=== PATIENT | female | born 2000 ===

== ENCOUNTER 2019-10-26 19:41 | Inpatient (IN) | payer SELFPAY ==
[2019-10-26] MEDS: haloperidol inj 5 mg/mL INJ 1 mL IM (20:04)
[2019-10-26] MEDS: LORazepam 2 mg/mL INJ 1 mL 4 MG IM (20:05)
[2019-10-26 20:18] LABS: Basophils # 0.1 10^3/uL (0.0-0.1); Basophils % 0.5 %; Eosinophils # 0.1 10^3/uL (0.0-0.8); Eosinophils % 0.9 %; Hematocrit 43.2 % (37.0-47.0); Hemoglobin 14.2 g/dL (11.5-15.3); Lymphocytes # 1.7 10^3/uL (0.8-4.8); Lymphocytes % 17.1 %; Mean Corpuscular HGB Conc 32.9 g/dL (30.0-36.0); Mean Corpuscular Hemoglobin 31.8 pg (28.0-34.0); Mean Corpuscular Volume 96.6 fL (81-99); Mean Platelet Volume 9.2 fL (7.4-10.4); Monocytes # 0.8 10^3/uL (0.2-0.9); Monocytes % 8.3 %; Neutrophils # 7.22 10^3/uL (1.8-7.7); Neutrophils % 72.8 %; Nucleated Red Blood Cells % 0 %; Platelet Count 300 10^3/cmm (130-400); Red Blood Count 4.47 10^6/uL (4.1-5.3); Red Cell Distribution Width 12.8 % (12.1-15.1); White Blood Count 9.9 10^3/uL (4.0-10.0)
[2019-10-26 20:20] VITALS: BP 172/98; PULSE 108; RESP 18; TEMP 36.8; O2SAT 99; BMI 17.6
--- NOTE | 2019-10-26 20:31 | ED_ITS ---
HPI - Psych General: Chief Complaint: Psychiatric Symptoms Stated Complaint: psych Time Seen by Provider: 10/26/19 19:42 Source: EMS Mode of arrival: EMS Limitations: altered mental status History of Present Illness: HPI Narrative: 19-year-old female who presents here with acute psychosis and agitation. Pt brought by ems after being found on the road. she has a known hx of drug use. Patient has track damian and is very agitated appears to be under the influence. Patient will follow commands and answer some questions. Review of Systems General: Reports: ROS unobtainable due to mental status Physical Exam Const: COMMON NORMALS: negative for patient oriented x3 EXAM LIMITATIONS: altered mental status GENERAL APPEARANCE: in distress, combative and disheveled HENMT: COMMON NORMALS: normocephalic and atraumatic HEAD & SCALP: normocephalic and atraumatic Eye: COMMON NORMALS: Equal, round and reactive pupils present and EOMs intact bilaterally PUPIL: Yes Equal, round and reactive pupils present Neck/C-Spine: COMMON NORMALS: full ROM and supple Chest: COMMONS NORMALS: normal inspection of the chest and normal palpation of entire chest wall Resp: COMMON NORMALS: normal respiratory effort, No retractions, No use of accessory muscles and clear to auscultation bilaterally AUSCULTATION: clear to auscultation bilaterally Cardio: COMMON NORMALS: regular rate, regular rhythm and No murmurs present (Cardio) RATE: regular rate RHYTHM: regular rhythm GI: COMMON NORMALS: Normal to inspection, nondistended, normoactive bowel sounds present, Soft to palpation, non-tender and no masses PALPATION: Yes Soft to palpation Extremity: COMMON NORMALS: normal to inspection and full ROM Neuro: COMMON NORMALS: moves all extremities and no focal motor deficits; negative for patient oriented x3 Psych: COMMON NORMALS: Normal thought process present APPEARANCE: Yes disheveled ATTITUDE: Yes paranoid, Yes agitated and Yes aggressive ACTIVITY/MOTOR BEHAVIOR: Yes psychomotor slowing MOOD & AFFECT: Yes hostile affect THOUGHT PROCESS: Normal thought process present Skin: COMMON NORMALS: no rashes or lesions noted and no wounds GENERAL SKIN EXAM: no rashes or lesions noted MDM - Psych MDM Narrative: Medical decision making narrative: Patient presents with acute psychosis likely from drug abuse. Patient had to be sedated here she was quite combative and agitated due to likely methamphetamine abuse. Spoke to Dr. Trujillo and will admit to the Neuropsych Unit for acute psychosis. Lab Data: Labs: Lab Results 10/26/19 10/26/19 10/26/19 Range/Units 20:10 20:10 20:13 WBC 9.9 (4.0-10.0) 10^3/ uL RBC 4.47 (4.1-5.3) 10^6/u L Hgb 14.2 (11.5-15.3) g/dL Hct 43.2 (37.0-47.0) % MCV 96.6 (81-99) fL MCH 31.8 (28.0-34.0) pg MCHC 32.9 (30.0-36.0) g/dL RDW 12.8 (12.1-15.1) % Plt Count 300 (130-400) 10^3/c mm MPV 9.2 (7.4-10.4) fL Neut % (Auto) 72.8 % Lymph % (Auto) 17.1 % [place] % (Auto) 8.3 % Eos % (Auto) 0.9 % Baso % (Auto) 0.5 % Neut # (Auto) 7.22 (1.8-7.7) 10^3/u L Lymph # (Auto) 1.7 (0.8-4.8) 10^3/u L [place] # (Auto) 0.8 (0.2-0.9) 10^3/u L Eos # (Auto) 0.1 (0.0-0.8) 10^3/u L Baso # (Auto) 0.1 (0.0-0.1) 10^3/u L Nucleated RBC % (a uto) 0 % Nucleated RBCs # 0.0 /100WBC Sodium (136-145) mmol/L Potassium (3.5-5.1) mmol/L Chloride (98-107) mmol/L Carbon Dioxide (22-29) mmol/L Anion Gap (5-19) BUN (6-20) mg/dL Creatinine (0.5-0.9) mg/dL GFR Calculation (90-130) mL/min Glucose (65-115) mg/dL Calculated Osmolal ity (285-295) mOsm/k g Calcium (8.5-10.5) mg/dL Total Bilirubin (0.15-1.2) mg/dL AST (0-32) U/L ALT (0-33) U/L Alkaline Phosphata se (35-105) IU/L Total Protein (6.6-8.7) g/dL Albumin (3.5-5.2) g/dL Globulin (1.3-4.6) g/dL HCG, Qual Negative (Negative) Salicylates (3-10) mg/dL Urine Opiates Scre en Negative (Negative) ng/mL Acetaminophen (10-30) ug/mL Ur Barbiturates Sc reen Negative (Negative) ng/mL Ur Phencyclidine S crn Positive H (Negative) ng/mL Ur Amphetamines Sc reen Positive H (Negative) ng/mL U Benzodiazepines Scrn Positive H (Negative) ng/mL Urine Cocaine Scre en Negative (Negative) ng/mL U Marijuana (THC) Screen Positive H (Negative) ng/mL Ethyl Alcohol (0-10) mg/dL 10/26/19 Range/Units 20:13 WBC (4.0-10.0) 10^3/ uL RBC (4.1-5.3) 10^6/u L Hgb (11.5-15.3) g/dL Hct (37.0-47.0) % MCV (81-99) fL MCH (28.0-34.0) pg MCHC (30.0-36.0) g/dL RDW (12.1-15.1) % Plt Count (130-400) 10^3/c mm MPV (7.4-10.4) fL Neut % (Auto) % Lymph % (Auto) % [place] % (Auto) % Eos % (Auto) % Baso % (Auto) % Neut # (Auto) (1.8-7.7) 10^3/u L Lymph # (Auto) (0.8-4.8) 10^3/u L [place] # (Auto) (0.2-0.9) 10^3/u L Eos # (Auto) (0.0-0.8) 10^3/u L Baso # (Auto) (0.0-0.1) 10^3/u L Nucleated RBC % (a uto) % Nucleated RBCs # /100WBC Sodium 135 L (136-145) mmol/L Potassium 4.4 (3.5-5.1) mmol/L Chloride 102 (98-107) mmol/L Carbon Dioxide 22 (22-29) mmol/L Anion Gap 15.4 (5-19) BUN 16 (6-20) mg/dL Creatinine 0.7 (0.5-0.9) mg/dL GFR Calculation 105.6 (90-130) mL/min Glucose 100 (65-115) mg/dL Calculated Osmolal ity 276 L (285-295) mOsm/k g Calcium 8.9 (8.5-10.5) mg/dL Total Bilirubin 0.4 (0.15-1.2) mg/dL AST 13 (0-32) U/L ALT 13 (0-33) U/L Alkaline Phosphata se 83 (35-105) IU/L Total Protein 7.2 (6.6-8.7) g/dL Albumin 4.7 (3.5-5.2) g/dL Globulin 2.5 (1.3-4.6) g/dL HCG, Qual (Negative) Salicylates < 0.3 L (3-10) mg/dL Urine Opiates Scre en (Negative) ng/mL Acetaminophen < 5.0 L (10-30) ug/mL Ur Barbiturates Sc reen (Negative) ng/mL Ur Phencyclidine S crn (Negative) ng/mL Ur Amphetamines Sc reen (Negative) ng/mL U Benzodiazepines Scrn (Negative) ng/mL Urine Cocaine Scre en (Negative) ng/mL U Marijuana (THC) Screen (Negative) ng/mL Ethyl Alcohol < 10 (0-10) mg/dL Discharge Plan Discharge Patient Disposition: Admitted As Inpatient Clinical Impression: Acute psychosis, Drug-induced psychotic disorder Condition: Stable Coding Level of Care Code ED Public Information Relations Manager for rFan Fwd Exam Comprehensive
[2019-10-26 20:44] LABS: Alanine Aminotransferase 13 U/L (0-33); Albumin Level 4.7 g/dL (3.5-5.2); Alkaline Phosphatase 83 IU/L (35-105); Anion Gap 15.4 (5-19); Aspartate Amino Transferase 13 U/L (0-32); Blood Urea Nitrogen 16 mg/dL (6-20); Calcium 8.9 mg/dL (8.5-10.5); Carbon Dioxide 22 mmol/L (22-29); Chloride 102 mmol/L (98-107); Globulin 2.5 g/dL (1.3-4.6); Glomerular Filtration Rate 105.6 mL/min (90-130); Glucose 100 mg/dL (65-115); Osmolality Calculated 276 mOsm/kg (285-295); Potassium 4.4 mmol/L (3.5-5.1); Sodium 135 mmol/L (136-145); Total Bilirubin 0.4 mg/dL (0.15-1.2); Total Protein 7.2 g/dL (6.6-8.7)
[2019-10-26 20:45] LABS: Acetaminophen < 5.0 ug/mL (10-30); Alcohol Level < 10 mg/dL (0-10); Salicylate < 0.3 mg/dL (3-10)
[2019-10-26 21:10] LABS: HCG Qualitative Urine. Negative (Negative)
[2019-10-26 21:16] LABS: Amphetamines Screen Urine Positive (Negative); Barbiturates Screen Urine Negative (Negative); Benzodiazepines Screen Urine Positive (Negative); Cocaine Screen Urine Negative (Negative); Opiate Screen Urine Negative (Negative); PCP Screen Urine Positive (Negative); THC Screen Urine Positive (Negative)
[2019-10-26 22:14] VITALS: BP 168/89; PULSE 78; RESP 18; O2SAT 94
--- NOTE | 2019-10-26 22:57 | PC.NURSE ---
Pt arrived to unit at 2251 via gurney from ER, sedated. pt assisted to bed per staff and assisted into unit scrubs. pt is unable to answer admission questions or sign paperwork due to sedation. vital signs obtained.
[2019-10-26 22:59] VITALS: BP 130/87; PULSE 80; RESP 15; TEMP 36.5; O2SAT 98
[2019-10-27 06:00] VITALS: BP 106/64; PULSE 91; RESP 13; TEMP 36.6; O2SAT 96
--- NOTE | 2019-10-27 06:16 | PC.NURSE ---
Needle track damian on both arms. Insect bites all over her body. Left great toe injury with area of discoloration.
[2019-10-27] MEDS: nicotine 2 mg Gum BUCCAL ×3 (10:17→17:12)
[2019-10-27 14:00] VITALS: BP 143/86; PULSE 110; RESP 18; TEMP 37.3; O2SAT 100
--- NOTE | 2019-10-27 16:27 | P.HP_ITS ---
Providers/Chief Complaint Admitting Physician: Dedrick Trujillo MD Chief Complaint: psych HPI NPU History of Present Illness SHIRLENE Martin is a 19 year old female who presents today, having presented to the emergency room with acute psychosis and agitation. She was brought in by EMS, after being found on the road, with a known history of drug use. She has track damian on her arms, and was very agitated and appeared to be under the influence. She answered some questions and followed some commands, but was a poor historian and unable to answer questions and given an accurate history of how she got here. She was admitted to the neuropsychiatric unit for definitive treatment of those issues. On the unit, she reported that she first had psychiatric involvement when she was about 8 years old. She reports she had anxiety back then. She reports that when she was 13 years old, and 15 years old, she had overdose/suicide attempts, and those marked her first two hospitalizations. She reports that she was on medication and only stopped taking medication about two to three months ago. She endorses that she smokes cigarettes, maybe as much as a pack of cigarettes a day, she reports not drinking alcohol often, she denies marijuana, cocaine, methamphetamine, and opiate use. She reports that she did have Xanax, in the past. She reports being in drug rehabilitation one time. She endorses that was secondary to methamphetamine, and she said she got down to maybe as low as 80 pounds, or so. She denies recent use of drugs, however, her UDS states quite the opposite, being positive for marijuana, benzodiazepines, amphetamines and PCP, although that PCP could very well be a false positive screen. She reports she has no idea how she got here, reporting that the [facility] Police found her, and she r eports that they had her strip and she was then life flighted here. It is unclear what the real sequence of events ended up being, we only know she arrived with EMS. She reports that she is struggling with depression and anxiety. She did not reveal psychosis, but she was clearly disorganized, had a strange affect, and appeared quite psychotic. PSYCHIATRIC HISTORY: As above. SUBSTANCE ABUSE HISTORY: As above. FAMILY HISTORY: She endorses mental health issues on her mother?s side of the family, and addiction issues on her father?s side of the family. She endorses that her father had a suicide attempt, in his past. DEVELOPMENTAL HISTORY: The patient denies any issues with her mother?s or delivery of her. The patient met all developmental milestones on time. She denies speech therapy, learning support, emotional support, or special education classes. She reports that she was an advanced student. PSYCHOSOCIAL HISTORY: She reports that her mother and father were together when she was born, and stayed together until her dad in 2018, from a car accident. She reports that her parents had her and her younger sister, and her mom had no other children, but her dad did have a son. She reports that her childhood was good, overall. She denies emotional, physical, or sexual abuse. She reports the highest grade she achieved was a freshman, and that was secondary to ?emotional problems.? She has not gotten her GED. She endorses being pansexual, reporting that she is attracted to peoples? personalities. She reports her longest relationship was four years. She has never been or had children. She has never been in the . She endorses being Restorationist. She reports her longest job was three to four months, at [employer]. She reports that she is currently homeless because her and her boyfriend got in a fight, in the last couple of weeks, and he apparently kicked her out. LEGAL HISTORY: She reports that she has been in shelter one time, for thirty four days. MEDICAL HISTORY: She denies any issues, but she is significantly underweight, but she denied any active eating disordered behavior. Meds NPU Home Medications Medication Instructions Recorded Confirmed Last Taken Type No Known Home Medications 10/27/19 10/27/19 Unknown History Allergies Allergy/AdvReac Type Severity Reaction Status Date / Time No Known Allergies Allergy Verified 10/26/19 20:20 [facility] NPU PFS: Social History Smoking and tobacco status: current every day smoker Mental Status Exam MSE Comments: This is an underweight, almost cachectic, white female, with hospital scrubs on, with limited grooming and overly pronounced eye contact. No abnormal movements, except for mild psychomotor retardation. Semi-cooperative with exam in no acute distress. Speech was decreased rate and volume. Mood described as good, but later stated as sad; affect odd. Thought process, organized. Thought content: patient denied any suicidal or homicidal ideation, there were no delusions reported or noted, patient denied any auditory or visual hallucinations. Attention, concentration, and memory appear intact but none were formally tested. She is alert and oriented times three. Insight and judgment are impaired. Impulse control is limited. Vitals/I&O/Wt Last Vital Signs Temp 99.1 F 10/27/19 14:00 Pulse 110 H 10/27/19 14:00 Resp 18 10/27/19 14:00 BP 143/86 10/27/19 14:00 Pulse Ox 100 10/27/19 14:00 Weight last 48 hrs Weight 40.823 kg Data NPU : 10/26/19 20:13 10/26/19 20:13 A&P Assessment and plan (1) Acute psychosis: Status: Acute (2) Drug-induced psychotic disorder: Status: Acute (3) Substance abuse: Status: Acute (4) Methamphetamine abuse: Status: Acute Additional A&P Information This is a 19 year old, white female, with psychotic disorder, unspecified, rule out substance induced psychotic disorder, depression, and substance use with multiple substances, who presents somewhat confused and psychotic but open to medication trial. Continue current medications, plus: Start BuSpar 10 mg po bid. Will consider Prozac, for depression, but she agreed to think about that. Additionally, we discussed Abilify and Invega, as anti-psychotics, and she believes she has had Abilify before. She agreed to a trial of Invega, but said she did not want to start it until the morning. Encourage individual, group, and milieu therapy. Continue q-15 minute checks for safety. Recommend sober living treatment at the highest level of care to which he is willing to commit. Involuntary Hold Information 96 Hour Hold: 96 Hour Involuntary Admission: Yes 96 Hour Hold Ending Date: 10/31/19 96 Hour Hold Ending Time: 00:01 Attestations NPU Medical Necessity Statement*: Inpatient hospitalization is medically necessary and the clinically appropriate intervention, at this time. We will monitor medications and make changes as indicated. Patient will be in the hospital for over two midnights. Likely length of stay is four to six days. Coding Level of Care Code Acute Flower Shop Manager for Fran Conway Diagnoses Acute psychosis F23 Drug-induced psychotic disorder F19.959 Substance abuse F19.10 Methamphetamine abuse F15.10
[2019-10-27] MEDS: BuSPIRONE 10 mg Tablet PO (18:11)
[2019-10-27] MEDS: trazodone 50 mg Tablet PO (20:09)
--- NOTE | 2019-10-27 20:31 | PC.NURSE ---
pt requested sleeping tab. prn trazodone given.
[2019-10-27 20:53] VITALS: BP 134/86; PULSE 79; RESP 18; TEMP 37; O2SAT 99
[2019-10-28 06:00] VITALS: BP 126/85; PULSE 104; RESP 19; TEMP 36.9; O2SAT 99
[2019-10-28] MEDS: BuSPIRONE 10 mg Tablet PO ×2 (07:36→20:11)
[2019-10-28] MEDS: nicotine 2 mg Gum BUCCAL ×6 (07:36→20:11)
[2019-10-28] MEDS: paliperidone ER 6 mg Tablet PO (07:36)
[2019-10-28 13:23] VITALS: BP 132/90; PULSE 93; RESP 18; TEMP 36.6; O2SAT 100
--- NOTE | 2019-10-28 13:52 | PM.NPN ---
Subjective NPU Subjective: Interval history: Mallika presents today reporting that she is doing okay on the Invega, so far, and is not ready to start the Prozac. But she was really focused on when she could be discharged, but the issues driving that request seem to likely be psychosis, as she would make statements like, ?it is probably not safe for me to be here,? or ?you are probably going to have to punch me in the eye and then discharge me,? without the ability to really give clarification of what her thought process was. But she seems to have some belief that the fact that she interacted with police means that she is in really serious trouble, and that we are just not understanding. I advised her that if she continues to take the medication, the combination of the medication and her not using, while she is on the unit, should yield improvement quickly. Mental Status Exam MSE Comments: This is an underweight, almost cachectic, white female, with hospital scrubs on, with limited grooming and overly pronounced eye contact. No abnormal movements, except for mild psychomotor retardation. Cooperative with exam in no acute distress. Speech was normal rate and volume. Mood described as good; affect odd. Thought process, organized. Thought content: patient denied any suicidal or homicidal ideation, there were no delusions reported or noted, patient denied any auditory or visual hallucinations. Attention, concentration, and memory appear intact but none were formally tested. She is alert and oriented times three. Insight and judgment are impaired. Impulse control is limited. Vitals/I&O/Wt Last Vital Signs Temp 98.5 F 10/28/19 21:08 Pulse 90 10/28/19 21:08 Resp 15 10/28/19 21:08 BP 146/94 10/28/19 21:08 Pulse Ox 98 10/28/19 21:08 Data NPU : 10/26/19 20:13 10/26/19 20:13 A&P Additional A&P Information (1) Acute psychosis: (2) Drug-induced psychotic disorder: (3) Substance abuse: (4) Methamphetamine abuse: This is a 19 year old, white female, with psychotic disorder, unspecified, rule out substance induced psychotic disorder, depression, and substance use with multiple substances, who presents somewhat confused and psychotic but open to medication trial. Continue current medications, plus: start invega 6 mg po qam Encourage individual, group, and milieu therapy. Continue q-15 minute checks for safety. Recommend sober living treatment at the highest level of care to which he is willing to commit. Involuntary Hold Information 96 Hour Hold: 96 Hour Involuntary Admission: Yes 96 Hour Hold Ending Date: 10/31/19 96 Hour Hold Ending Time: 00:01 Attestations NPU Medical Necessity Statement*: Inpatient hospitalization is medically necessary and the clinically appropriate intervention, at this time. We will monitor medications and make changes as indicated. Likely length of stay is 3-5 days. Coding Level of Care Code Acute Director Of Physical Education for Fran Conway
[2019-10-28] MEDS: hyDROXYzine 25 mg Capsule 50 MG PO (20:11)
[2019-10-28] MEDS: trazodone 50 mg Tablet PO (20:11)
--- NOTE | 2019-10-28 21:07 | PC.NURSE ---
pt requested nicorette gum, sleeping and anxiety med be given with scheduled Buspar.
[2019-10-28 21:08] VITALS: BP 146/94; PULSE 90; RESP 15; TEMP 36.9; O2SAT 98
[2019-10-29 06:00] VITALS: BP 147/97; PULSE 90; RESP 16; TEMP 36.4; O2SAT 98
[2019-10-29] MEDS: nicotine 2 mg Gum BUCCAL ×6 (07:42→20:25)
[2019-10-29] MEDS: paliperidone ER 6 mg Tablet PO (08:41)
[2019-10-29] MEDS: BuSPIRONE 10 mg Tablet PO ×2 (08:42→20:24)
--- NOTE | 2019-10-29 11:00 | PM.NPN ---
Subjective NPU Subjective: Interval history: Mallika presents today continuing to be a bit foggy and wondering about discharge. We discussed the fact that her 96-hour hold would end on the at essentially midnight or 12:01 on the and so we would have to discharge her on the if we decided not to file for additional time. She continued to endorse struggling with how she was thinking and did not have a plan for where she would go once, she was discharged. Mental Status Exam MSE Comments: This is an underweight, almost cachectic, white female, with hospital scrubs on, with limited grooming and overly pronounced eye contact. No abnormal movements, except for mild psychomotor retardation. Cooperative with exam in no acute distress. Speech was normal rate and volume. Mood described as OK; affect odd. Thought process, organized. Thought content: patient denied any suicidal or homicidal ideation, there were no delusions reported or noted, patient denied any auditory or visual hallucinations, but is hearing voices and noted that later. Attention, concentration, and memory appear intact but none were formally tested. She is alert and oriented times three. Insight and judgment are impaired. Impulse control is limited. Vitals/I&O/Wt Last Vital Signs Temp 98.8 F 10/29/19 21:21 Pulse 91 10/29/19 21:21 Resp 22 H 10/29/19 21:21 BP 156/98 10/29/19 21:21 Pulse Ox 98 10/29/19 21:21 Data NPU : 10/26/19 20:13 10/26/19 20:13 A&P Additional A&P Information (1) Acute psychosis: (2) Drug-induced psychotic disorder: (3) Substance abuse: (4) Methamphetamine abuse: This is a 19 year old, white female, with psychotic disorder, unspecified, rule out substance induced psychotic disorder, depression, and substance use with multiple substances, who presents somewhat confused and psychotic but open to medication trial. Continue current medications, plus: start invega 6 mg po qam Encourage individual, group, and milieu therapy. Continue q-15 minute checks for safety. Recommend sober living treatment at the highest level of care to which he is willing to commit. Involuntary Hold Information 96 Hour Hold: 96 Hour Involuntary Admission: Yes 96 Hour Hold Ending Date: 10/31/19 96 Hour Hold Ending Time: 00:01 Attestations NPU Medical Necessity Statement*: Inpatient hospitalization is medically necessary and the clinically appropriate intervention, at this time. We will monitor medications and make changes as indicated. Likely length of stay is 3-5 days. Coding Level of Care Code Acute Ditching Machine Operating Engineer for Fran Conway
[2019-10-29 14:00] VITALS: BP 151/95; PULSE 76; RESP 20; TEMP 36.9; O2SAT 95
[2019-10-29 21:21] VITALS: BP 156/98; PULSE 91; RESP 22; TEMP 37.1; O2SAT 98
[2019-10-30 06:00] VITALS: BP 156/98; PULSE 91; RESP 22; TEMP 37.1; O2SAT 98
[2019-10-30] MEDS: nicotine 2 mg Gum BUCCAL ×4 (06:16→16:20)
[2019-10-30 06:23] VITALS: BP 144/87; PULSE 86; RESP 20; TEMP 37; O2SAT 98
--- NOTE | 2019-10-30 08:00 | PC.NURSE ---
Patient is talkative this morning and easily engaged. She is in the dayroom eating breakfast. When asked how she came to the unit she appears lost. She stated I can't remember. She told me that she has been using Meth since age 14. She is on probation in [facility] with 2 years remaining. She reports that her stomach has been upset and that she was tossing and turning all night and felt like her blood pressure is up. She said that stressors are why she uses. She denies all SI/HI today. She would like to stop using drugs but dont feel it is an issue and she can quit on her own. We talked about her interests and she said that she likes to play the [employer] and one of her goals is to finish high school and create solar panels for each city to decrease the cost of power while saving the environment.
[2019-10-30] MEDS: BuSPIRONE 10 mg Tablet PO ×2 (08:17→20:27)
[2019-10-30] MEDS: paliperidone ER 6 mg Tablet PO (08:17)
[2019-10-30] MEDS: hyDROXYzine 25 mg Capsule 50 MG PO ×2 (12:35→20:27)
[2019-10-30 14:00] VITALS: BP 140/103; PULSE 90; RESP 20; TEMP 37.2; O2SAT 99
--- NOTE | 2019-10-30 14:46 | P.PN_ITS ---
Subjective NPU Subjective: Interval history: Mallika presents today reporting that she is still confused, but then was lobbying for discharge. She had no idea where she would go and what she would do. We discussed the fact that she would need to sign in as the hold would end. We discussed the risks, benefits, and alternatives of different plans of treatment including rehab and things of that nature. At this point, she is still too confused to really make a decision. She often will come up to me at random times during the day and say things like ?am I safe here.? I tried to explain to her with the environment she finds herself in, but she reports that the voices are overwhelming. She is eating fine and sleeping okay. Mental Status Exam MSE Comments: This is an underweight, almost cachectic, white female, with hospital scrubs on, with limited grooming and overly pronounced eye contact. No abnormal movements, except for mild psychomotor retardation. Cooperative with exam in no acute distress. Speech was normal rate and volume. Mood described as fine; affect odd. Thought process, organized. Thought content: patient denied any suicidal or homicidal ideation, there were no delusions reported or noted, patient denied any auditory or visual hallucinations, but is hearing voices and noted that later. Attention, concentration, and memory appear intact but none were formally tested. She is alert and oriented times three. Insight and judgment are impaired. Impulse control is limited. Vitals/I&O/Wt Last Vital Signs Temp 98.6 F 10/30/19 06:23 Pulse 86 10/30/19 06:23 Resp 20 H 10/30/19 06:23 BP 144/87 10/30/19 06:23 Pulse Ox 98 10/30/19 06:23 Data NPU : 10/26/19 20:13 10/26/19 20:13 A&P Additional A&P Information (1) Acute psychosis: (2) Drug-induced psychotic disorder: (3) Substance abuse: (4) Methamphetamine abuse: This is a 19 year old, white female, with psychotic disorder, unspecified, rule out substance induced psychotic disorder, depression, and substance use with multiple substances, who presents somewhat confused and psychotic but open to medication trial. Continue current medications, plus: start invega 6 mg po qam Encourage individual, group, and milieu therapy. Continue q-15 minute checks for safety. Recommend sober living treatment at the highest level of care to which he is willing to commit. Involuntary Hold Information 96 Hour Hold: 96 Hour Involuntary Admission: Yes 96 Hour Hold Ending Date: 10/31/19 96 Hour Hold Ending Time: 00:01 Attestations NPU Medical Necessity Statement*: Inpatient hospitalization is medically necessary and the clinically appropriate intervention, at this time. We will monitor medications and make changes as indicated. Likely length of stay is 3-5 days. Coding Level of Care Code Acute Zoning Technician for Fran Conway
[2019-10-30 20:10] VITALS: BP 134/87; PULSE 90; RESP 22; TEMP 37; O2SAT 98
[2019-10-30] MEDS: OLANZapine 5 mg ODT PO (20:27)
[2019-10-31 06:00] VITALS: BP 149/93; PULSE 85; RESP 15; TEMP 36.8; O2SAT 96
[2019-10-31] MEDS: nicotine 2 mg Gum BUCCAL ×3 (08:18→18:30)
[2019-10-31] MEDS: BuSPIRONE 10 mg Tablet PO (08:19)
[2019-10-31] MEDS: paliperidone ER 6 mg Tablet PO (08:19)
[2019-10-31] MEDS: OLANZapine 5 mg ODT PO (13:13)
--- NOTE | 2019-10-31 13:14 | PC.NURSE ---
PRN Zyprexa Zydis 5 MG PO Given for Anxiety will continue to monitor
[2019-10-31 14:00] VITALS: RESP 20
--- NOTE | 2019-10-31 15:46 | P.PN_ITS ---
Subjective NPU Subjective: Interval history: Mallika presented to the session a little bit irritable and very much expressing a desire to leave. She was frustrated when we asked what she would do. She had responses like ?I can figure it out, or ?I can just go and stay with my cousin.? Any of those suggestions she had, she could not answer the follow-up question like, have you spoken to your cousin, how will you eat, where will you go, all these things would overwhelm her and she would just say ?I just want to go.?. We expressed concern that she is not in the condition to leave. She has no money, she has no transportation, and she would just respond ?I know how to get food.?. We sat down and had a long conversation and I advised her that I would work with her in discharging her in the event that we have something that is a real plan, not just open the door and see what happens, and that my concerns about her psychosis and inability to care for herself are significant enough that I would consider doing another 96-hour hold. She reported that she would work with us and everything would be fine. She reports she is eating okay but had significant concerns about sleep. We discussed the risks, benefits, and alternatives of possibly increasing her Invega to deal with the voices and she understood and said she would consider making that change. Mental Status Exam MSE Comments: This is an underweight, almost cachectic, white female, with hospital scrubs on, with limited grooming and overly pronounced eye contact. No abnormal movements, except for mild psychomotor retardation. Cooperative with exam in no acute distress. Speech was normal rate and volume. Mood described as Ok I'm ready to go; affect odd. Thought process, organized. Thought content: patient denied any suicidal or homicidal ideation, there were no delusions reported or noted, patient denied any auditory or visual hallucinations, but is hearing voices and noted that later. Attention, concentration, and memory appear intact but none were formally tested. She is alert and oriented times three. Insight and judgment are impaired. Impulse control is limited. Vitals/I&O/Wt Last Vital Signs Temp 98.3 F 10/31/19 06:00 Pulse 85 10/31/19 06:00 Resp 20 H 10/31/19 14:00 BP 149/93 10/31/19 06:00 Pulse Ox 96 10/31/19 06:00 Data NPU : 10/26/19 20:13 10/26/19 20:13 A&P Additional A&P Information (1) Acute psychosis: (2) Drug-induced psychotic disorder: (3) Substance abuse: (4) Methamphetamine abuse: This is a 19 year old, white female, with psychotic disorder, unspecified, rule out substance induced psychotic disorder, depression, and substance use with multiple substances, who presents somewhat confused and psychotic but open to medication trial. Continue current medications. Encourage individual, group, and milieu therapy. Continue q-15 minute checks for safety. Recommend sober living treatment at the highest level of care to which he is willing to commit. Involuntary Hold Information 96 Hour Hold: 96 Hour Involuntary Admission: Yes 96 Hour Hold Ending Date: 10/31/19 96 Hour Hold Ending Time: 00:01 Attestations NPU Medical Necessity Statement*: Inpatient hospitalization is medically necessary and the clinically appropriate intervention, at this time. We will monitor medications and make changes as indicated. Likely length of stay is 2-4 days. Coding Level of Care Code Acute Organ Tuner Electronic for Fran Conway
[2019-10-31 20:21] VITALS: BP 134/85; PULSE 88; RESP 20; TEMP 36.9; O2SAT 98
[2019-11-01 06:00] VITALS: RESP 18
--- NOTE | 2019-11-01 06:22 | PC.NURSE ---
patient refused vitals
[2019-11-01 06:30] VITALS: BP 137/85; PULSE 105; RESP 19; TEMP 36.6; O2SAT 98
[2019-11-01] MEDS: nicotine 2 mg Gum BUCCAL ×3 (09:05→16:16)
[2019-11-01] MEDS: paliperidone ER 6 mg Tablet PO (09:05)
[2019-11-01 13:35] VITALS: RESP 18; TEMP 36.7
[2019-11-01] MEDS: hyDROXYzine 25 mg Capsule 50 MG PO ×2 (14:00→21:19)
[2019-11-01] MEDS: paliperidone ER 3 mg Tablet PO (16:16)
--- NOTE | 2019-11-01 17:12 | P.PN_ITS ---
Subjective NPU Subjective: Interval history: Mallika presents today continuing to struggle with her thought disorder. She was even questioning whether it would ever go back to normal and we discussed the fact that we would expect it to improve, but we cannot say for sure but if she avoids drug use and continue medication chances are better. Her mother came and we had a chance to have a discussion together. She agreed that compared to baseline, she continues to be far from the mik. She has great fears about what will happen if she is discharged and agreed that a rehab of some sort made the most sense. Mallika was on board with this. We also discussed some things to assist with her sleep including risks, benefits, and alternatives of starting Doxepin and increasing her Trazodone, and she agreed with her mom present to increase the Invega. She understood and agreed to proceed as is documented in this note. She agreed to stay with us. We discussed in front of mom that at this point given her fogginess and the continued intensity of the voices, that if she were to ask to leave prior to some arrangement for discharge, we agreed that we would institute a 96-hour hold. Mental Status Exam MSE Comments: This is an underweight, almost cachectic, white female, with hospital scrubs on, with limited grooming and overly pronounced eye contact. No abnormal movements, except for mild psychomotor retardation. Cooperative with exam in no acute distress. Speech was normal rate and volume. Mood described as anxious; affect less odd. Thought process, organized. Thought content: patient denied any suicidal or homicidal ideation, there were no delusions reported or noted, patient denied any visual hallucinations, but is hearing voices. Attention, concentration, and memory appear intact but none were formally tested. She is alert and oriented times three. Insight and judgment are impaired, but improving. Impulse control is limited. Vitals/I&O/Wt Last Vital Signs Temp 98.1 F 11/01/19 13:35 Pulse 105 H 11/01/19 06:30 Resp 14 11/01/19 21:29 BP 137/85 11/01/19 06:30 Pulse Ox 98 11/01/19 06:30 Weight last 48 hrs Weight 40.823 kg Data NPU : 10/26/19 20:13 10/26/19 20:13 A&P Additional A&P Information (1) Acute psychosis: (2) Drug-induced psychotic disorder: (3) Substance abuse: (4) Methamphetamine abuse: This is a 19 year old, white female, with psychotic disorder, unspecified, rule out substance induced psychotic disorder, depression, and substance use with multiple substances, who presents somewhat confused and psychotic but open to medication trial. Continue current medications.Except increase Invega, Trazodone, and add Doxepin. Encourage individual, group, and milieu therapy. Continue q-15 minute checks for safety. Recommend sober living treatment at the highest level of care to which he is willing to commit.Mom will begin calling rehabs. Involuntary Hold Information 96 Hour Hold: 96 Hour Involuntary Admission: Yes 96 Hour Hold Ending Date: 10/31/19 96 Hour Hold Ending Time: 00:01 Attestations NPU Medical Necessity Statement*: Inpatient hospitalization is medically necessary and the clinically appropriate intervention, at this time. We will monitor medications and make changes as indicated. Likely length of stay is 1-3 days. Coding Level of Care Code Acute Sausage Inspector for Fran Conway
[2019-11-01] MEDS: doxepin 10 mg Capsule PO (21:19)
[2019-11-01 21:29] VITALS: RESP 14
[2019-11-02 06:00] VITALS: BP 137/78; PULSE 78; RESP 16; TEMP 36.7; O2SAT 97
[2019-11-02] MEDS: nicotine 2 mg Gum BUCCAL ×3 (06:07→12:33)
[2019-11-02] MEDS: paliperidone 3 MG, paliperidone 6 MG 9 MG PO (09:27)
[2019-11-02] MEDS: hyDROXYzine 25 mg Capsule 50 MG PO ×3 (09:50→21:10)
--- NOTE | 2019-11-02 13:03 | PM.NPN ---
Subjective NPU Subjective: Interval history: Mallika presented reporting that the medication changes were helpful and she again queried whether she was safe here. She is navigating the unit well and is agreeable to her mother's assistance in getting some treatment for her addiction in an inpatient setting. She is eating OK and sleeping better. Mental Status Exam MSE Comments: This is an underweight, white female, with hospital scrubs on, with limited grooming and more normal eye contact. No abnormal movements, except for mild psychomotor retardation. Cooperative with exam in no acute distress. Speech was normal rate and volume. Mood described as better; affect less odd. Thought process, organized. Thought content: patient denied any suicidal or homicidal ideation, there were no delusions reported or noted, patient denied any visual hallucinations, but is hearing voices. Attention, concentration, and memory appear intact but none were formally tested. She is alert and oriented times three. Insight and judgment are limited but improving. Impulse control is limited, but improving. Vitals/I&O/Wt Last Vital Signs Temp 98.5 F 11/02/19 21:21 Pulse 102 H 11/02/19 21:21 Resp 19 H 11/02/19 21:21 BP 123/72 11/02/19 21:21 Pulse Ox 98 11/02/19 21:21 Weight last 48 hrs Weight 40.823 kg Data NPU : 10/26/19 20:13 10/26/19 20:13 A&P Additional A&P Information (1) Acute psychosis: (2) Drug-induced psychotic disorder: (3) Substance abuse: (4) Methamphetamine abuse: This is a 19 year old, white female, with psychotic disorder, unspecified, rule out substance induced psychotic disorder, depression, and substance use with multiple substances, who presents somewhat confused and psychotic but open to medication trial. Continue current medications.Except increase Invega, Trazodone, and add Doxepin. Encourage individual, group, and milieu therapy. Continue q-15 minute checks for safety. Recommend sober living treatment at the highest level of care to which he is willing to commit.Mom will begin calling rehabs. Involuntary Hold Information 96 Hour Hold: 96 Hour Involuntary Admission: Yes 96 Hour Hold Ending Date: 10/31/19 96 Hour Hold Ending Time: 00:01 Attestations NPU Medical Necessity Statement*: Inpatient hospitalization is medically necessary and the clinically appropriate intervention, at this time. We will monitor medications and make changes as indicated. Likely length of stay is 1-2 days. Coding Level of Care Code Acute Laminating Machine Operator for Fran Conway
[2019-11-02 14:00] VITALS: BP 131/87; PULSE 106; RESP 19; TEMP 37; O2SAT 99
[2019-11-02] MEDS: doxepin 10 mg Capsule PO (21:09)
[2019-11-02] MEDS: OLANZapine 5 mg ODT PO (21:09)
[2019-11-02 21:21] VITALS: BP 123/72; PULSE 102; RESP 19; TEMP 36.9; O2SAT 98
--- NOTE | 2019-11-02 22:14 | PC.NURSE ---
pt requested anxiety meds be given with scheduled HS meds.
[2019-11-03 06:00] VITALS: BP 127/77; PULSE 116; RESP 22; TEMP 37; O2SAT 99
[2019-11-03] MEDS: paliperidone 3 MG, paliperidone 6 MG 9 MG PO (08:47)
[2019-11-03] MEDS: nicotine 2 mg Gum BUCCAL (08:51)
[2019-11-03] MEDS: hyDROXYzine 25 mg Capsule 50 MG PO (09:29)
--- NOTE | 2019-11-03 09:29 | PC.NURSE ---
PRN VISTARIL VISTARIL 50MG PO PER PATIENT C/O ANXIETY. WILL CONTINUE TO MONITOR FOR MEDICATION EFFECTIVENESS.
[2019-11-03 09:32] VITALS: BP 127/77; PULSE 116; RESP 22; TEMP 37; O2SAT 99
--- NOTE | 2019-11-03 09:34 | P.DS_ITS ---
Diagnoses at Discharge Discharge Diagnosis (1) Acute psychosis: Status: Resolved (2) Drug-induced psychotic disorder: Status: Resolved (3) Substance abuse: Status: Resolved (4) Methamphetamine abuse: Status: Resolved Reason for Visit Reason for Visit: psych Brief History: SHIRLENE Martin is a 19 year old female who presents today, having presented to the emergency room with acute psychosis and agitation. She was brought in by EMS, after being found on the road, with a known history of drug use. She has track damian on her arms, and was very agitated and appeared to be under the influence. She answered some questions and followed some commands, but was a poor historian and unable to answer questions and given an accurate history of how she got here. She was admitted to the neuropsychiatric unit for definitive treatment of those issues. On the unit, she reported that she first had psychiatric involvement when she was about 8 years old. She reports she had anxiety back then. She reports that when she was 13 years old, and 15 years old, she had overdose/suicide attempts, and those marked her first two hospitalizations. She reports that she was on medication and only stopped taking medication about two to three months ago. She endorses that she smokes cigarettes, maybe as much as a pack of cigarettes a day, she reports not drinking alcohol often, she denies marijuana, cocaine, methamphetamine, and opiate use. She reports that she did have Xanax, in the past. She reports being in drug rehabilitation one time. She endorses that was secondary to methamphetamine, and she said she got down to maybe as low as 80 pounds, or so. She denies recent use of drugs, however, her UDS states quite the opposite, being positive for marijuana, benzodiazepines, amphetamines and PCP, although that PCP could very well be a false positive screen. She reports she has no idea how she got here, reporting that the [employer] found her, and she reports that they had her strip and she was then life flighted here. It is unclear what the real sequence of events ended up being, we only know she arrived with EMS. She reports that she is struggling with depression and anxiety. She did not reveal psychosis, but she was clearly disorganized, had a strange affect, and appeared quite psychotic. Hospital Course Hospital Course Patient was admitted to the adult psychiatric unit and provided for access to individual and group therapies as part of the unit protocol. She received a 24- hour supervision by trained nursing personnel. The plan at the time of admission according to documentation: Assessment and plan (1) Acute psychosis: Status: Acute (2) Drug-induced psychotic disorder: Status: Acute (3) Substance abuse: Status: Acute (4) Methamphetamine abuse: Status: Acute Additional A&P Information This is a 19 year old, white female, with psychotic disorder, unspecified, rule out substance induced psychotic disorder, depression, and substance use with multiple substances, who presents somewhat confused and psychotic but open to medication trial. Continue current medications, plus: Start BuSpar 10 mg po bid. Will consider Prozac, for depression, but she agreed to think about that. Additionally, we discussed Abilify and Invega, as anti-psychotics, and she believes she has had Abilify before. She agreed to a trial of Invega, but said s he did not want to start it until the morning. Encourage individual, group, and milieu therapy. Continue q-15 minute checks for safety. Recommend sober living treatment at the highest level of care to which he is willing to commit. Hopsital Day #2: Continue current medications, plus: start invega 6 mg po qam Her 96 involuntary commitment on hospital day #4. This physician first met with this patient on hospital day #7. Patient reported that she was ready for discharge. Conference with staff supported her contention that the patient had a safe destination and transportation. She reported being stable on medications. She stated she was free of suicidal and homicidal ideation. The expectation was that she would be discharged today. Involuntary Hold Information 96 Hour Hold: 96 Hour Involuntary Admission: Yes 96 Hour Hold Ending Date: 10/31/19 96 Hour Hold Ending Time: 00:01 Mental Status Exam MSE Comments: Discharge Mental Status Exam: Appearance: hygiene is good; no gross neurological deficits., gait is unremarkable; AIMS=0 Speech: Speech is of normal rate and rhythm and easily understood. Thought processes: Thought processes are abstract. Judgment is adequate for safety. Associations: intact Psychotic processes: There is no indication of guarding or paranoia. There is no attention to the internal stimuli. Auditory and visual hallucinations are denied. Judgment: Insight is fair. Problem solving skills are adequate for safety. Orientation: The patient is oriented to person, place time and situation. Memory: no deficits noted in immediate, intermediate, or remote spheres. Attention: The patient is alert and interpersonally engaged. Language: Verbalizations are coherent. Fund of knowledge: Fund of knowledge is adequate. Affect/Mood: Affect is consistent with a euthymic mood. denied suicidal ideation Affective range is appropriate. Psychosis: perception unimpaired except through cognitive distortion; reality testing intact. Discharge Data Vitals: Last Vital Signs Temp 98.6 F 11/03/19 09:32 Pulse 116 H 11/03/19 09:32 Resp 22 H 11/03/19 09:32 BP 127/77 11/03/19 09:32 Pulse Ox 99 11/03/19 09:32 Discharge Plan Discharge Patient Disposition: Home Condition: Stable Prescriptions: New doxepin 10 mg Capsule 10 mg PO BEDTIME Qty: 30 RF: 3 buspirone 15 mg Tablet 15 mg PO BID@0900,2100 Qty: 60 RF: 3 paliperidone 9 mg Tablet Extended Release 24hr 9 mg PO DAILY Qty: 30 RF: 3 Discharge Orders: Discharge Order (Routine); Ordered 11/03/19 Ordered By: Henri Walton Referrals: [facility] [Other] Patient Instructions: Buspirone (By mouth), Doxepin (By mouth), Paliperidone (By mouth), Anxiety (DC) Activity Restrictions/Additional Instructions: You said that you are interested in [facility]) for a assisted... [facility] serves those who are homeless or at immediate risk of homelessness throughout [facility]. If you are at risk of becoming homeless or currently without a safe, stable place to stay, please call [phone] or visit us at the [facility], [facility] One of the [facility] service coordinators will meet with you to help identify resources and options that may meet your individual needs. Hours of Operation: Sunday: 9am ? 5pm Sunday: 9am ? noon and 1pm ? 5pm Sunday: 9am ? 5pm : 10am ? 5pm Sunday: 9am ? 5pm* *[facility] is closed the first Sunday of every month Inclement weather policy: If [employer] are closed, the [facility] will also be closed. Discharge Attestations NPU Time Spent in Discharge Care*: greater than 30 min Coding Level of Care Code Acute Linotype Machinist Apprentice for Chg Fwd Diagnoses Acute psychosis F23 Drug-induced psychotic disorder F19.959 Substance abuse F19.10 Methamphetamine abuse F15.10
== END 2019-11-03 10:59 | disposition home or self-care (01) | DRG 885 ==
LOC: ER 21:21 → NP 21:54
PROVIDERS: Admitting Provider Psychiatry & Neurology Psychiatry; Emergency Provider Emergency Medicine; Visit Provider Psychiatry & Neurology Psychiatry
DX: F23 Brief psychotic disorder (principal); F15.259 Other stimulant dependence with stimulant-induced psychotic disorder, unspecified; F17.210 Nicotine dependence, cigarettes, uncomplicated; Z91.5 Personal history of self-harm
CPT/HCPCS: 12345; 36415; 80053; 80306; 80307; 81025; 85025; 96372; 99284; J1630; J2060